=== PATIENT | female | born 1995 | race Caucasian/White ===

== ENCOUNTER 2020-10-05 20:28 | Emergency (ER) | payer OTHER ==
--- NOTE | 2020-10-05 21:11 | ED ---
SOB HPI - General Chief Complaint: Shortness of Breath Stated Complaint: shortness of breath Time Seen by Provider: 10/05/20 20:41 Source: patient, EMS Mode of arrival: ambulatory Limitations: no limitations - History of Present Illness Initial Comments: Patient is a 25-year-old female, history of IV drug use, presenting to the emergency department via EMS with complaints of shortness of breath and a cough for 2 days. Patient states she is homeless. She denies any fevers, no chest pain. Patient states his shortness of breath gets worse when she is up walking around. Patient denies history of asthma, she is an every day smoker as well, she also admits to smoking meth as well as IV meth use. She does not believe she is but has not had her menstrual cycle and 2 months, history of PCOS. She denies any abdominal pain, no nausea or vomiting. She denies any other pertinent past medical history. She has no further complaints. Upon arrival to the ER, she is afebrile, 100% on room air. - Related Data Home Medications Medication Instructions Recorded Confirmed Aspirin 81 mg PO DAILY PRN 10/05/20 10/05/20 Famotidine [Pepcid] 20 mg PO DAILY PRN 10/05/20 10/05/20 Allergies Allergy/AdvReac Type Severity Reaction Status Date / Time sertraline [From Zoloft] Allergy Rash/Hives Verified 10/05/20 21:41 Review of Systems ROS Statement: Those systems with pertinent positive or pertinent negative responses have been documented in the HPI. ROS Other: All systems not noted in ROS Statement are negative. Past Medical History Past Medical History: No Reported History Additional Past Medical History / Comment(s): PCOS History of Any Multi-Drug Resistant Organisms: None Reported Past Surgical History: Section Past Psychological History: Anxiety, Depression Smoking Status: Current every day smoker Past Alcohol Use History: None Reported Past Drug Use History: IV Drug Use, Methamphetamine General Exam - General Exam Comments Initial Comments: GENERAL: Patient is well-developed and well-nourished. Patient is nontoxic and in no acute distress. HEAD: Atraumatic, normocephalic. EYES: Pupils equal round and reactive to light, extraocular movements intact, sclera anicteric, conjunctiva are normal. Eyelids were unremarkable. ENT: TMs normal, nares patent, oropharynx clear without exudates. Moist mucous membranes. NECK: Normal range of motion, supple without lymphadenopathy or JVD. LUNGS: Unlabored respirations. Breath sounds clear to auscultation bilaterally and equal. No wheezes rales or rhonchi. HEART: Regular rate and rhythm without murmurs, rubs or gallops. ABDOMEN: Soft, nontender, normoactive bowel sounds. No guarding, no rebound. No masses appreciated. : Deferred MUSCULOSKELETAL: Normal extremities with adequate strength and normal range of motion, no pitting or edema. No clubbing or cyanosis. NEUROLOGICAL: Patient is alert and oriented x 3. Motor and sensory are also intact. Cranial nerves II through XII grossly intact. Symmetrical smile. Normal speech, normal gait. PSYCH: Normal mood, normal affect. SKIN: Warm, Dry, normal turgor, no rashes. Patient has track adler present on her hands and in bilateral AC areas. No signs of an infection or abscess at this time. Limitations: no limitations Course Vital Signs 10/05/20 10/05/20 20:39 21:30 Temperature 98.4 F 97.8 F Pulse Rate 92 96 Respiratory 16 18 Rate Blood Pressure 127/93 111/77 O2 Sat by Pulse 100 99 Oximetry Medical Decision Making - Medical Decision Making Patient is a 25-year-old female presenting via EMS for complaints of cough and short of breath 2 days. She is afebrile, her exam is unremarkable, she does serrano ve track adler present, she is a known IV drug abuser. Chest x-ray shows no acute abnormalities, urine shows negative hCG, she does have a significant amount of blood in urine, she states just started her menstrual cycle. I discussed the patient's symptoms are most likely viral nature. She does not have any signs of an abscess or infection at this time. She is stable for discharge. She can follow-up with her PCP. She is in agreement with this plan of care. - Lab Data Lab Results 10/05/20 10/05/20 Range/Units 21:27 21:51 Urine Color Light Red Urine Appearance Cloudy H (Clear) Urine pH 6.5 (5.0-8.0) Ur Specific [place] 1.018 (1.001-1.035) Urine Protein 1+ H (Negative) Urine Glucose (UA) Negative (Negative) Urine Ketones Negative (Negative) Urine Blood Large H (Negative) Urine Nitrite Negative (Negative) Urine Bilirubin Negative (Negative) Urine Urobilinogen <2.0 (<2.0) mg/dL Ur Leukocyte Esterase Small H (Negative) Urine RBC >182 H (0-5) /hpf Urine WBC 7 H (0-5) /hpf Ur Squamous Epith Cells 14 H (0-4) /hpf Urine Mucus Few H (None) /hpf Urine HCG, Qual Not Detected (Not Detectd) Disposition Clinical Impression: Cough, Viral illness Disposition: HOME SELF-CARE Condition: Stable Instructions (If sedation given, give patient instructions): Viral Syndrome (ED) Additional Instructions: Please return to the Emergency Department if symptoms worsen or any other concerns. Chest x-ray today is normal, most likely viral nature. Recommend continuing to drink lots of fluids. Follow-up with her regular doctor. Is patient prescribed a controlled substance at d/c from ED?: No Referrals: None,Stated [Primary Care Provider] - 1-2 days
--- NOTE | 2020-10-05 22:13 | XR ---
EXAMINATION TYPE: XR chest 2V DATE OF EXAM: 10/05/2020 COMPARISON: NONE HISTORY: Vertebra TECHNIQUE: 2 views FINDINGS: Heart and mediastinum are normal. Lungs are clear. Diaphragm is normal. Bony thorax appears normal. IMPRESSION: Normal chest. Normal heart.
[2020-10-05 22:18] LABS: Appearance,Urine Cloudy (Clear); Bilirubin,Urine Negative (Negative); Blood,Urine Large (Negative); Color,Urine Light Red; Glucose,Urine (UA) Negative (Negative); Ketones,Urine Negative (Negative); Leukocyte Esterase,Urine Small (Negative); Mucus,Urine Few /hpf; Nitrite,Urine Negative (Negative); PH, Urine 6.5 (5.0-8.0); Protein,Urine 1+ (Negative); RBC,Urine >182 /hpf (0-5); Specific Gravity,Urine 1.018 (1.001-1.035); Squamous Epithelial Cell,Urine 14 /hpf (0-4); Urobilinogen,Urine <2.0 mg/dL (<2.0); WBC,Urine 7 /hpf (0-5)
[2020-10-05 22:22] VITALS: RESP 18
[2020-10-05 22:57] VITALS: BP 117/86; PULSE 95; TEMP 98.1
== END 2020-10-05 22:34 | disposition home or self-care (01) ==
LOC: EC 20:28
DX: B34.9 Viral infection, unspecified (principal); Z59.0 Homelessness; R31.9 Hematuria, unspecified; F17.200 Nicotine dependence, unspecified, uncomplicated; Z79.82 Long term (current) use of aspirin; Z88.8 Allergy status to other drugs, medicaments and biological substances
CPT/HCPCS: 71046; 81001; 81025; 99285